=== PATIENT | female | born 1975 | race Two or more races ===

== ENCOUNTER → 2024-10-26 | Outpatient (CLI) | payer MEDICAID, SELFPAY ==
--- NOTE | 2024-10-26 09:50 | XR_ITS ---
Examination: Forearm, left 2 views. Technique: Forearm, AP, lateral 2 views Date and time of exam: October 26, 2024 0956 hrs. Indications: Left forearm pain and swelling 5 years Findings: No fracture or dislocation No cortical bone destruction No opaque foreign body Impression: No fracture or cortical bone destruction
== END | disposition home or self-care (01) ==
LOC: CDIM 09:37
PROVIDERS: PCP Nurse Practitioner Family; Referring Provider Nurse Practitioner Family; Visit Provider Nurse Practitioner Family
DX: R22.32 Localized swelling, mass and lump, left upper limb (principal)
CPT/HCPCS: 73090

== ENCOUNTER 2024-11-18 09:00 | Outpatient (RCR) | payer MEDICAID, SELFPAY ==
--- NOTE | 2024-11-05 14:39 | PT.ODAYNRPT ---
PT Outpatient Daily Note OP Daily Note Outpatient Physical Therapy Treatment Date: 11/05/24 Visit Reasons: Bilateral wrist pain Subjective: Pt reports slow progress with B hand symptoms. Objective: Please see flow sheet for ther ex list. Assessment: Light gripping interventions completed with no complaits today. Plan: Continue with POC. Length of Time (minutes) of Treatment: 30 Minutes Procedure Charges Therapeutic Exercise 30 minutes: Yes
--- NOTE | 2024-11-11 09:38 | PT.ODAYNRPT ---
PT Outpatient Daily Note OP Daily Note Outpatient Physical Therapy Treatment Date: 11/11/24 Visit Reasons: Bilateral wrist pain Subjective: Pt c/o B hand pain, feels it is due to cold weather. Objective: Please see flow sheet for ther ex list. Assessment: Interventions completed with minimal pain. Plan: Continue with POC. Length of Time (minutes) of Treatment: 30 Minutes Procedure Charges Therapeutic Exercise 30 minutes: Yes
--- NOTE | 2024-11-18 10:17 | PT.ODAYNRPT ---
PT Outpatient Daily Note OP Daily Note Outpatient Physical Therapy Treatment Date: 11/18/24 Visit Reasons: Bilateral wrist pain Subjective: Continued B hand pain Objective: See f/S for therex MHP: x5' B hands Assessment: Good strength with gripping therex Plan: Continue per POC Length of Time (minutes) of Treatment: 30 Minutes Procedure Charges Therapeutic Exercise 30 minutes: Yes
== END 2024-11-29 23:59 | disposition home or self-care (01) ==
LOC: CPTX 09:00
DX: M25.532 Pain in left wrist (principal); M25.531 Pain in right wrist; R20.2 Paresthesia of skin; R53.1 Weakness
CPT/HCPCS: 97110

== ENCOUNTER → 2025-04-25 | Outpatient (CLI) | payer MEDICAID, SELFPAY ==
--- NOTE | 2025-04-25 10:15 | XR_ITS ---
Examination: MRI xx foot, without contrast Date and time of exam: April 25, 2025 and 20 hours INDICATIONS: Patient fell 5 years ago with images available, persistent elbow pain and swelling Technique: Multiple axial sagittal and coronal images of the left elbow have been obtained with the Siemens high-resolution 1.5 Kinza MRI scanner. Images obtained include T2-weighted fat-suppressed sagittal sections, TR 3500, TE 46, T2 weighted coronal fat suppressed images, TR 3050, TE 84, T2-weighted transverse fat suppressed images, TR 3260, TE 63, proton density transverse images, TR 4720 TE 46, and T1 weighted coronal images, TR 560, TE 13. Findings: No occult fracture Common flexor, extensor tendons intact Small elbow effusion Triceps tendon attenuated but intact Normal long head of the biceps insertion into the radial tuberosity No ossified joint bodies IMPRESSION: No occult fracture or avascular necrosis Small elbow effusion Negative for tendinitis
== END | disposition home or self-care (01) ==
PROVIDERS: PCP Nurse Practitioner Family; Referring Provider Nurse Practitioner Gerontology; Visit Provider Nurse Practitioner Gerontology
DX: M25.422 Effusion, left elbow (principal)
CPT/HCPCS: 73221